=== PATIENT | female | born 1980 | race Caucasian/White ===

== ENCOUNTER → 2017-11-24 09:44 | Outpatient (CLI) | payer BC, SELFPAY ==
[2017-11-24 11:28] LABS: TSH 1.01 uIU/mL (0.358-3.74)
== END ==
PROVIDERS: PCP Family Medicine; Visit Provider Internal Medicine Endocrinology, Diabetes & Metabolism
DX: C73 Malignant neoplasm of thyroid gland (principal)
CPT/HCPCS: 36415; 84439; 84443

== ENCOUNTER 2018-06-21 08:02 | Outpatient (CLI) | payer BC, SELFPAY ==
[2018-06-21 13:50] LABS: TSH 0.04 uIU/mL (0.358-3.74)
== END 2018-06-21 08:22 ==
PROVIDERS: PCP Family Medicine; Visit Provider Internal Medicine
DX: C73 Malignant neoplasm of thyroid gland (principal)
CPT/HCPCS: 36415; 84443

== ENCOUNTER 2018-10-24 01:56 | Outpatient (CLI) | payer BC, SELFPAY ==
[2018-10-24 09:18] LABS: TSH 0.03 uIU/mL (0.358-3.74)
== END 2018-10-24 02:16 ==
PROVIDERS: PCP Family Medicine; Visit Provider Internal Medicine
DX: E03.9 Hypothyroidism, unspecified (principal)
CPT/HCPCS: 36415; 84443

== ENCOUNTER 2024-04-08 14:58 | Outpatient (CLI) | payer BC, SELFPAY ==
[2024-04-10 10:48] LABS: Thyroglobulin Antibody 57 IU/mL (<1.8); Thyroglobulin Tumor Marker <0.1 ng/mL
== END 2024-04-08 14:59 | disposition home or self-care (01) ==
LOC: LBO 15:00
PROVIDERS: Visit Provider Internal Medicine
DX: Z85.850 Personal history of malignant neoplasm of thyroid (principal); E89.0 Postprocedural hypothyroidism
CPT/HCPCS: 36415; 84235; 84432; 84443; 86800